=== PATIENT | male | born 1995 | race Caucasian/White ===

== ENCOUNTER 2022-04-10 04:36 | Emergency (ER) | payer SELFPAY ==
[2022-04-10] MEDS ORDERED: PREDNISONE20 MG PO (05:08)
[2022-04-10 05:13] VITALS: BP 150/101
== END 2022-04-10 05:15 | disposition home or self-care (01) ==
LOC: ED 04:36
DX: L23.7 Allergic contact dermatitis due to plants, except food (principal); Z28.311 Partially vaccinated for COVID-19
CPT/HCPCS: J2930

== ENCOUNTER 2022-10-30 08:00 | Outpatient (RCR) | payer OTHER ==
[~2022-10-30 08:00] MED LIST: PREDNISONE20 MG PO
== END 2022-11-29 | disposition home or self-care (01) ==
LOC: PT
DX: S83.511D Sprain of anterior cruciate ligament of right knee, subsequent encounter (principal); X58.XXXD Exposure to other specified factors, subsequent encounter